=== PATIENT | female | born 1965 | race Caucasian/White ===

== ENCOUNTER → 2021-04-26 | Day surgery (SDC) | payer OTHER ==
[~2021-04-26] VITALS: Ht 165.1 cm; Wt 67.2 kg
[~2021-04-26] MED LIST: ACETAMINOPHEN500 M1 PO; COLACE100 MG PO; ESTROGEN CREAM TOP; HCTZ12.5 MG PO; IBUPROFEN800 MG PO; OMEPRAZOLE40 MG PO; OXY-IR 5MG5 MG PO; PROGESTERONE100 MG PO; SINGULAIR10 MG PO
[2021-04-26 07:57] LABS: BASOPHIL 0.5 % (0-2); BILIRUBIN NEGATIVE (NEGATIVE); BLOOD 1+ Ery/uL (NEGATIVE); CLARITY CLEAR (CLEAR); COLOR YELLOW (YELLOW); EOSINOPHIL 1.9 & (0-5); GLUCOSE (U) NORMAL (NORMAL); HCT 43.5 % (37.0-47.0); HGB 13.9 g/dl (12.5-16.0); LEUKOCYTES NEGATIVE Leu/uL (NEGATIVE); LYMPHOCYTE 11.9 % (15-48); MCV 90.8 fL (78.0-100.0); MONOCYTE 7.3 % (0-12); MPV 8.7 fL (6.0-9.5); NEUTROPHIL 78.2 % (41-80); NITRITE NEGATIVE (NEGATIVE); PLT 348 K/uL (150-400); PROTEIN NEGATIVE (NEGATIVE); RBC 4.79 M/uL (4.20-5.40); RDW 13.3 % (11.5-14.0); SPECIFIC GRAVITY >=1.030 (1.001-1.030); UROBILINOGEN 0.2 mg/dL (0.2-1.0); pH 5.5 (5.0-9.0)
[2021-04-26 08:02] LABS: BACTERIA TRACE; URINARY WBC RARE
[2021-04-26 08:42] LABS: ALBUMIN 3.9 g/dL (3.4-5.0); BILIRUBIN - TOTAL 0.3 mg/dL (0.2-1.0); BUN/CREAT RATIO (CALC) 19.4 RATIO; CREATININE 0.98 mg/dL (0.51-0.95); GLOBULIN (CALCULATION) 3.7 g/dL; POTASSIUM 3.9 mmol/L (3.5-5.1); TOTAL PROTEIN 7.6 g/dL (6.4-8.2)
== END | disposition home or self-care (01) ==
LOC: FER 07:16 → FAS 13:29
PROVIDERS: Emergency Medicine
DX: K80.10 Calculus of gallbladder with chronic cholecystitis without obstruction (principal); J30.9 Allergic rhinitis, unspecified; K59.09 Other constipation; M26.609 Unspecified temporomandibular joint disorder, unspecified side; D64.9 Anemia, unspecified; Z79.52 Long term (current) use of systemic steroids; Z79.899 Other long term (current) drug therapy; Z20.822 Contact with and (suspected) exposure to COVID-19; Z98.51 Tubal ligation status; Z87.891 Personal history of nicotine dependence
CPT/HCPCS: 36415; 80053; 81001; 83690; 85025; 87040; J1100; J2250; J2270; J2405; J2543; J2704; J3010; J7030; J7120; Q9967; U0002